=== PATIENT | female | born 1985 | race Caucasian/White ===

== ENCOUNTER 2023-05-29 15:47 | Outpatient (REF) | payer OTHER, SELFPAY ==
--- NOTE | ~2023-05-29 | MM_ITS ---
EXAMINATION: MM SCREENING DIGITAL BREAST TOMOSYNTHESIS, BILATERAL CLINICAL INFORMATION: Screening. Asymptomatic. No family history of breast CA. No prior history of breast surgeries. COMPARISON: Mammography: None. Baseline exam. TECHNIQUE: Digital breast tomosynthesis is performed in both the craniocaudal and mediolateral oblique views along with computer-aided detection (CAD). Synthesized 2D images are generated from the tomosynthesis. An extra full-field 3-D right CC projection was provided for overexposure on the first attempt. FINDINGS: The breasts are heterogeneously dense, which may obscure small masses (ACR BI-RADS breast composition Category c). The left breast appears slightly larger than the right, likely baseline in this patient. There are no suspicious masses, suspicious grouped calcifications, or areas of architectural distortion in either breast. No skin or axillary abnormalities are present. MM/MM tomosynthesis screening BI IMPRESSION: No mammographic evidence of malignancy. ASSESSMENT: BI-RADS BI-RADS 2 - Benign Findings RECOMMENDATION: Routine annual mammography screening. 1 year F/U This examination should not preclude the clinical evaluation of a suspicious palpable abnormality. This patient's information was entered into a reminder system with a target due date for their next mammogram.
== END 2023-05-29 15:48 | disposition home or self-care (01) ==
LOC: HO.MAMMO 15:47
DX: Z12.31 Encounter for screening mammogram for malignant neoplasm of breast (principal)
CPT/HCPCS: 77063; 77067

== ENCOUNTER → 2023-05-29 16:00 | Outpatient (BNV) | payer OTHER, SELFPAY | PROVIDERS: Visit Provider Radiology Diagnostic Radiology | DX: Z12.31 Encounter for screening mammogram for malignant neoplasm of breast (principal) | CPT/HCPCS: 77063; 77067 ==

== ENCOUNTER 2023-05-30 15:41 | Outpatient (REF) | payer OTHER, SELFPAY ==
--- NOTE | ~2023-05-30 | US_ITS ---
EXAMINATION: US PELVIS CLINICAL INFORMATION: 38-year-old with heavy painful menses, LMP 05/20/2023 COMPARISON: None available. TECHNIQUE: Ultrasound of the pelvis is performed using both transabdominal and transvaginal transducers along with Doppler. Transvaginal imaging is performed due to inadequate visualization transabdominally. FINDINGS: Uterus: The uterus is anteverted and measures 7.4 x 4.3 x 5.0 cm. The double wall endometrial thickness is 18 mm. The uterus is smooth in contour and has normal myometrial echogenicity. No visible fibroid. Adnexa: Both ovaries are visualized. There is normal color flow to the adnexa. There is no ovarian torsion. There is no pelvic ascites or fluid collection. Right ovary measures 2.7 x 1.8 x 2.7 cm. Unilocular avascular simple intraovarian cyst measuring 1.9 cm. Left ovary measures 3.0 x 2.1 x 2.5 cm. Unilocular avascular simple intraovarian cyst measuring 1.2 cm. US/US pelvic and transvaginal IMPRESSION: Thickened endometrium measuring up to 18 mm. Recommend short interval follow-up in 6-8 weeks to assess for resolution. Bilateral intraovarian cysts are likely physiologic requiring no further follow-up.
== END 2023-05-30 15:42 | disposition home or self-care (01) ==
LOC: HO.US 15:41
PROVIDERS: Visit Provider Physician Assistant
DX: N92.0 Excessive and frequent menstruation with regular cycle (principal); N94.6 Dysmenorrhea, unspecified
CPT/HCPCS: 76830; 76856